=== PATIENT | female | born 1955 | race Two or more races ===

== ENCOUNTER 2017-07-26 08:45 | Emergency (ER) | payer OTHER ==
[2017-07-26 08:56] VITALS: BP 117/61; PULSE 71; TEMP 98.8; BMI 29.2
--- NOTE | 2017-07-26 10:16 | PDOC ---
History of Present Illness - General Chief Complaint: Sore Throat Stated Complaint: COUGH, THROAT PAIN Time Seen by Provider: 07/26/17 09:21 History Source: Patient - History of Present Illness Timing/Duration: other Associated Symptoms: denies: cough, fever/chills, malaise, nausea/vomiting, shortness of breath Past History - Past Medical History Allergies/Adverse Reactions: Allergies Allergy/AdvReac Type Severity Reaction Status Date / Time No Known Allergies Allergy Verified 07/26/17 08:52 Home Medications: Ambulatory Orders Metoclopramide HCl [Reglan -] 5 mg PO TIDAC PRN #30 tablet 03/24/16 Moxifloxacin HCl 400 mg PO DAILY #10 tablet 03/24/16 Pantoprazole Sodium [Protonix -] 40 mg PO DAILY #30 tablet.ec 03/24/16 Acetaminophen [Tylenol] 650 mg PO Q6H #30 tablet 07/26/17 CVA: No COPD: No DVT: No - Immunization History Immunization Up to Date: Yes - Suicide/Smoking/Psychosocial Hx Smoking History: Never smoked Have you smoked in the past 12 months: No Information on smoking cessation initiated: No Hx Alcohol Use: No Drug/Substance Use Hx: No Substance Use Type: None Review of Systems - Review of Systems Constitutional: No: Chills, Fever HEENTM: Yes: Throat Pain Respiratory: No: Cough, Shortness of Breath Cardiac (ROS): No: Chest Pain *Physical Exam - Vital Signs Last Vital Signs Temp Pulse Resp BP Pulse Ox 98.8 F 71 17 117/61 95 07/26/17 08:53 07/26/17 08:53 07/26/17 08:53 07/26/17 08:53 07/26/17 08:53 - Physical Exam General Appearance: Yes: Appropriately Dressed. No: Apparent Distress HEENT: positive: Normal ENT Inspection, Normal Voice, TMs Normal, Pharynx Normal. negative: Muffled/Hoarse voice, Tonsillar Exudate Neck: positive: Supple Respiratory/Chest: positive: Lungs Clear, Normal Breath Sounds. negative: Respiratory Distress Cardiovascular: positive: Regular Rate, S1, S2 Integumentary: positive: Dry, Warm Neurologic: positive: Fully Oriented, Alert, Normal Mood/Affect Medical Decision Making - Medical Decision Making 07/26/17 10:19 61-year-old female, no significant history, comes in with intermittent sore throat 2 months that she feels is gradually getting worse. Describes pain as a "discomfort" with no worsening or alleviating factors. No cough as noted at triage and denies fever, chills, dysphagia, abdominal pain, nausea, vomiting, chest pain, SOB or unexplained weight loss. Smoked intermittently for 4 years, many years ago per pt. States this is her first time seeking medical evaluation as she recently got insurance. Does not currently have a PMD. Pt well- appearing and stable with unremarkable exam. Unclear source of pain at this time. Unlikely infectious, ? gastritis. Will need further workup. Patient given referral for primary care and ENT. Reasons to return discussed with patient *DC/Admit/Observation/Transfer Diagnosis at time of Disposition: Sore throat - Discharge Dispostion Disposition: HOME Condition at time of disposition: Good - Prescriptions Prescriptions: Acetaminophen [Tylenol] 650 mg PO Q6H #30 tablet - Referrals Referrals: Gualberto Rodriguez MD [Staff Physician] - - Patient Instructions Printed Discharge Instructions: Sore Throat Additional Instructions: El origen de m[place] dolor de garganta no est ben en david momento, renay necesitar shyann evaluacin adicional de m[place] mdico de cabecera y otorrinolaringlogo. Seguimiento con el Dr. Candelario. ENT en 1 semana y si Jackson no ayesha middleton seguro, puede llamar al nmero que se encuentra en el reverso de middleton tarjeta para fernanda la lista de referencias Alonzo Tylenol solo para el dolor segn sea necesario Print Language: CROATIAN - Post Discharge Activity
== END 2017-07-26 10:18 | disposition home or self-care (01) ==
LOC: JERFT 08:45
DX: J02.9 Acute pharyngitis, unspecified (principal)
CPT/HCPCS: 99281-25

== ENCOUNTER 2018-01-09 18:17 | Emergency (ER) | payer OTHER ==
[2018-01-09 18:29] VITALS: BP 124/63; PULSE 77; TEMP 98.7; BMI 26.4
--- NOTE | 2018-01-09 18:29 | PDOC ---
Rapid Medical Evaluation Chief Complaint: Sore Throat Time Seen by Provider: 01/09/18 18:23 Medical Evaluation: Allergies Allergy/AdvReac Type Severity Reaction Status Date / Time No Known Allergies Allergy Verified 07/26/17 08:52 01/09/18 18:25 I have performed a brief in person evaluation of this patient. The patient present with a CC of: Sore throat x 1 week Pertinent PE findings: HEENT: Airway patent Lungs Clear Heart RRR MS: Moves all extremities without difficulty Neuro: alert Psych: appropriate affect. Pt has an outpatient order from her PCP for a CXR and is requesting it to be done today. I have ordered a RBS and it is pending. CXR was also ordered. The patient will proceed to [facility] for further evaluation: Discharge Disposition - Diagnosis Sore throat - Referrals - Patient Instructions - Post Discharge Activity
--- NOTE | 2018-01-09 19:12 | PDOC ---
History of Present Illness - General Chief Complaint: Sore Throat Stated Complaint: COLD SYMPTOMS Time Seen by Provider: 01/09/18 18:23 History Source: Patient Exam Limitations: No Limitations - History of Present Illness Initial Comments: 01/09/18 19:06 HISTORY OF PRESENT ILLNESS: This is 62-year-old woman denies medical history presents emergency department for 1 week of sore throat, subjective fevers, dry a productive cough and nasal congestion. Patient has not taken anything to help relieve her pain or symptoms. Patient was seen by her primary doctor who gave patient a prescription for chest x-ray and Flonase. She denies shortness of breath, chest pain, nausea, vomiting, abdominal pain, diarrhea, dysuria, hematuria. No recent travel or sick contacts. PAST MEDICAL HISTORY: Denies past medical history SURGICAL HISTORY: Denies ALLERGIES: No known drug allergies REVIEW OF SYSTEMS General/Constitutional: +fever or chills. Denies weakness, weight change. HEENT: Denies change in vision. Denies ear pain or discharge. +sore throat. + nasal congestion. Cardiovascular: Denies chest pain or shortness of breath. Respiratory: Dry productive cough. Denies wheezing, or hemoptysis. Gastrointestinal: Denies nausea, vomiting, diarrhea or constipation. Denies rectal bleeding. Genitourinary: Denies dysuria, frequency, or change in urination. Musculoskeletal: Denies joint or muscle swelling or pain. Denies neck or back pain. Skin and breasts: Denies rash or easy bruising. Neurologic: Denies headache, vertigo, loss of consciousness, or loss of sensation. Psychiatric: Denies depression or anxiety. Endocrine: Denies increased thirst. Denies abnormal weight change. Hematologic/Lymphatic: Denies anemia, easy bleeding, or history of blood clots. Allergic/Immunologic: Denies hives or skin allergy. Denies latex allergy. PHYSICAL EXAM General Appearance: Well-appearing, appropriately dressed. No apparent distress , no intoxication. HEENT: EOMI, PERRLA, normal ENT inspection, normal voice, TMs normal, pharynx normal. No conjunctival pallor. No photophobia, scleral icterus. Neck: Supple. Trachea midline. No tenderness, rigidity, carotid bruit, stridor , lymphadenopathy, or thyromegaly. Respiratory/Chest: Lungs CTAB. No shortness of breath, chest tenderness, respiratory distress, accessory muscle use. No crackles, rales, rhonchi, stridor , wheezing, dullness Cardiovascular: RRR. S1, S2. No JVD, murmur, bradycardia, tachycardia. Vascular Pulses: Dorsalis-Pedis (R): 2+, Dorsalis-Pedis (L): 2+ Gastrointestinal/Abdominal: Normal bowel sounds. Abdomen soft, non-distended. No tenderness or rebound tenderness. No organomegaly, pulsatile mass, guarding, hernia, hepatomegaly, splenomegaly. Lymphatic: No adenopathy, tenderness. Musculoskeletal/Extremities: Normal inspection. FROM of all extremities, normal capillary refill. Pelvis Stable. No CVA tenderness. No tenderness to extremities, pedal edema, swelling, erythema or deformity. Integumentary: Appropriate color, dry, warm. No cyanosis, erythema, jaundice or rash Neurologic: stake setter II-XII intact. Fully oriented, alert. Appropriate mood/affect. Motor strength 5/5. No appreciable EOM palsy, facial droop or sensory deficit. Past History - Past Medical History Allergies/Adverse Reactions: Allergies Allergy/AdvReac Type Severity Reaction Status Date / Time No Known Allergies Allergy Verified 01/09/18 18:29 Home Medications: Ambulatory Orders Benzonatate [Tessalon Pearls -] 200 mg PO TID #42 cap 01/09/18 CVA: No COPD: No DVT: No - Immunization History Immunization Up to Date: Yes - Suicide/Smoking/Psychosocial Hx Smoking History: Former smoker Have you smoked in the past 12 months: No Information on smoking cessation initiated: No Hx Alcohol Use: No Drug/Substance Use Hx: No Substance Use Type: None *Physical Exam - Vital Signs Last Vital Signs Temp Pulse Resp BP Pulse Ox 98.7 F 77 18 124/63 100 01/09/18 18:22 01/09/18 18:22 01/09/18 18:22 01/09/18 18:22 01/09/18 18:22 Medical Decision Making - Medical Decision Making 01/09/18 19:08 A/P: 62-year-old woman with 1 week of sore throat, nasal congestion, dry productive cough Oropharynx clear without erythema or exudates No sinus tenderness upon palpation Lungs clear to auscultation bilaterally Chest x-ray as read by me: Angles clear. Cardiac silhouette is within normal limits. No focal infiltrates or consolidations noted Rapid strep is pending Patient is refusing analgesia at this time is only requesting something for cough upon discharge 01/09/18 19:50 Rapid strep testing is negative. I'll discharge the patient home with instructions for symptomatic treatment of an upper respiratory infection. I discussed the physical exam findings, ancillary test results and final diagnoses with the patient. I answered all of the patient's questions. The patient was satisfied with the care received and felt comfortable with the discharge plan and treatment plan. The patient will call their primary care physician within 24 hours to arrange follow-up and will return to the Emergency Department with any new, persistent or worsening symptoms. *DC/Admit/Observation/Transfer Diagnosis at time of Disposition: URI (upper respiratory infection) Qualifiers: URI type: unspecified viral URI Qualified Code(s): J06.9 - Acute upper respiratory infection, unspecified - Discharge Dispostion Disposition: HOME Condition at time of disposition: Stable Decision to Admit order: No - Prescriptions Prescriptions: Benzonatate [Tessalon Pearls -] 200 mg PO TID #42 cap - Referrals - Patient Instructions Additional Instructions: Rest, drink lots of fluids: Teas, water, soups, Pedialyte Saltwater gargles Steamy showers/seem to face break up mucus Avoid contact with others until fevers and cough resolved Lots of handwashing and good hygiene Continue [id number] medications for symptomatic relief Tylenol or Motrin for fever and pain Followup with private physician in one to 2 days as needed Return to emergency department for worsened symptoms, fevers, dehydration El descanso, beber muchos lquidos: ts, agua, sopas, Pedialyte grgaras de agua salada Duchas Steamy / parecen enfrentar aflojar la mucosidad Evite el contacto con otras personas hasta que la fiebre y la tos resueltos Un montn de lavado de terri y la higiene Continuar [id number] medicamentos para el alivio sintomtico Tylenol o Motrin para la fiebre y el dolor Followup con el mdico privado en ruddy o 2 galarza segn sea necesario Regresar a urgencias por sntomas empeoraron, fiebres, deshidratacin - Post Discharge Activity
== END 2018-01-09 19:57 | disposition home or self-care (01) ==
LOC: JERFT 18:17
DX: J06.9 Acute upper respiratory infection, unspecified (principal); B97.89 Other viral agents as the cause of diseases classified elsewhere
CPT/HCPCS: 71046-TC-FY; 87070; 87430; 99281-25

== ENCOUNTER 2018-03-27 11:14 | Emergency (ER) | payer OTHER ==
[2018-03-27 11:22] VITALS: BP 152/65; PULSE 76; TEMP 97.8; BMI 29.2
[2018-03-27] MEDS ORDERED: ACETAMINOPHEN 500 MG TABLET (FP) PO ONE (12:17)
--- NOTE | 2018-03-27 12:21 | PDOC ---
History of Present Illness - General Chief Complaint: Cold Symptoms Stated Complaint: FEVER Time Seen by Provider: 03/27/18 11:51 History Source: Patient Exam Limitations: Language Barrier (Cyracom #) - History of Present Illness Initial Comments: 03/27/18 12:18 HISTORY OF PRESENT ILLNESS: No recent travel or sick contacts. PAST MEDICAL HISTORY: Denies past medical history SURGICAL HISTORY: Denies ALLERGIES: No known drug allergies REVIEW OF SYSTEMS General/Constitutional: +subjective fever. Denies weakness, weight change. HEENT: Denies change in vision. Denies ear pain or discharge. +sore throat. + rhinorrhea. +tearing Cardiovascular: Denies chest pain or shortness of breath. Respiratory: Moist productive cough. Denies wheezing, or hemoptysis. Gastrointestinal: Denies nausea, vomiting, diarrhea or constipation. Denies rectal bleeding. Genitourinary: Denies dysuria, frequency, or change in urination. Musculoskeletal: +myalgias. Denies neck or back pain. Skin and breasts: Denies rash or easy bruising. Neurologic: Denies headache, vertigo, loss of consciousness, or loss of sensation. Psychiatric: Denies depression or anxiety. Endocrine: Denies increased thirst. Denies abnormal weight change. Hematologic/Lymphatic: Denies anemia, easy bleeding, or history of blood clots. Allergic/Immunologic: Denies hives or skin allergy. Denies latex allergy. PHYSICAL EXAM General Appearance: Well-appearing, appropriately dressed. No apparent distress , no intoxication. HEENT: EOMI, PERRLA, normal voice, TMs retracted bilaterally. No conjunctival pallor. No photophobia, scleral icterus. Oropharynx mildly erythematous without lesions or exudate. Cobblestoning noted in the posterior. Clear nasal discharge present. Neck: Supple. Trachea midline. No tenderness, rigidity, carotid bruit, stridor , or thyromegaly. Nontender anterior cervical lymphadenopathy present. Respiratory/Chest: Lungs CTAB. No shortness of breath, chest tenderness, respiratory distress, accessory muscle use. No crackles, rales, rhonchi, stridor , wheezing, dullness Cardiovascular: RRR. S1, S2. No JVD, murmur, bradycardia, tachycardia. Vascular Pulses: Dorsalis-Pedis (R): 2+, Dorsalis-Pedis (L): 2+ Gastrointestinal/Abdominal: Normal bowel sounds. Abdomen soft, non-distended. No tenderness or rebound tenderness. No organomegaly, pulsatile mass, guarding, hernia, hepatomegaly, splenomegaly. Musculoskeletal/Extremities: Normal inspection. FROM of all extremities, normal capillary refill. Pelvis Stable. No CVA tenderness. No tenderness to extremities, pedal edema, swelling, erythema or deformity. Integumentary: Appropriate color, dry, warm. No cyanosis, erythema, jaundice or rash Neurologic: watch and clock maker and repairer II-XII intact. Fully oriented, alert. Appropriate mood/affect. Motor strength 5/5. No appreciable EOM palsy, facial droop or sensory deficit. Past History - Past Medical History Allergies/Adverse Reactions: Allergies Allergy/AdvReac Type Severity Reaction Status Date / Time No Known Allergies Allergy Verified 01/09/18 18:29 Home Medications: Ambulatory Orders Benzonatate [Tessalon Pearls -] 200 mg PO TID #42 cap 01/09/18 CVA: No COPD: No DVT: No - Immunization History Immunization Up to Date: Yes - Suicide/Smoking/Psychosocial Hx Smoking History: Never smoked Have you smoked in the past 12 months: No Hx Alcohol Use: No Drug/Substance Use Hx: No Substance Use Type: None *Physical Exam - Vital Signs Last Vital Signs Temp Pulse Resp BP Pulse Ox 97.8 F 76 16 152/65 100 03/27/18 11:19 03/27/18 11:19 03/27/18 11:19 03/27/18 11:19 03/27/18 11:19 Moderate Sedation - Procedure Monitoring Vital Signs: Procedure Monitoring Vital Signs Temperature 97.8 F 03/27/18 11:19 Pulse Rate 76 03/27/18 11:19 Respiratory Rate 16 03/27/18 11:19 Blood Pressure 152/65 03/27/18 11:19 O2 Sat by Pulse Oximetry (%) 100 03/27/18 11:19 ED Treatment Course - RADIOLOGY Radiology Studies Ordered: Category Date Time Status CHEST PA & LAT [RAD] Stat Radiology 03/27/18 12:17 Ordered Medical Decision Making - Medical Decision Making 03/27/18 12:20 A/P: 62-year-old woman with 2 days of influenza-like illness Chest x-ray, influenza testing, Tylenol, reassessed 03/27/18 12:55 X-rays read by Dr. Kwiatek: No evidence of active pulmonary disease. Influenza testing is negative. I will discharge the patient home with supportive treatment. I discussed the physical exam findings, ancillary test results and final diagnoses with the patient. I answered all of the patient's questions. The patient was satisfied with the care received and felt comfortable with the discharge plan and treatment plan. The patient will call their primary care physician within 24 hours to arrange follow-up and will return to the Emergency Department with any new, persistent or worsening symptoms. *DC/Admit/Observation/Transfer Diagnosis at time of Disposition: URI (upper respiratory infection) Qualifiers: URI type: acute nasopharyngitis (common cold) Qualified Code(s): J00 - Acute nasopharyngitis [common cold] - Discharge Dispostion Disposition: HOME Condition at time of disposition: Stable Decision to Admit order: No - Referrals - Patient Instructions Printed Discharge Instructions: DI for Viral Upper Respiratory Infection -- Adult Additional Instructions: Rest, drink lots of fluids: Teas, water, soups, Pedialyte Saltwater gargles Steamy showers/seem to face break up mucus Avoid contact with others until fevers and cough resolved Lots of handwashing and good hygiene Continue [id number] medications for symptomatic relief Tylenol or Motrin for fever and pain Followup with private physician in one to 2 days as needed Return to emergency department for worsened symptoms, fevers, dehydration El descyanaosara muchos lquidos: ts, agua, sopas, Pedialyte grgaras de agua salada Duchas Steamy / parecen enfrentar aflojar la mucosidad Evite el contacto con otras personas hasta que la fiebre y la tos resueltos Un montn de lavado de terri y la higiene Continuar [id number] medicamentos para el alivio sintomtico Tylenol o Motrin para la fiebre y el dolor Followup con el mdico privado en ruddy o 2 galarza segn sea necesario Regresar a urgencias por sntomas empeoraron, fiebres, deshidratacin - Post Discharge Activity
[2018-03-27] MEDS ORDERED: ACETAMINOPHEN 325 MG TABLET (FP) ONE ×2 (12:30)
== END 2018-03-27 13:12 | disposition home or self-care (01) ==
LOC: JERFT 11:14
DX: J00 Acute nasopharyngitis [common cold] (principal)
CPT/HCPCS: 71046-TC-FY; 87804; 99281-25